=== PATIENT | female | born 1965 | race African-American/Black ===

== ENCOUNTER 2017-02-26 18:17 | Emergency (ER) | payer MEDICAID ==
[~2017-02-26] VITALS: Ht 167.6 cm; Wt 85.0 kg
[2017-02-26] MEDS ORDERED: ONDANSETRON HCL 4MG/2ML VIAL IV STA (18:37)
[2017-02-26] MEDS ORDERED: KETOROLAC 30MG/ML VIAL IV STA (18:37)
[2017-02-26] MEDS ORDERED: MORPHINE SULFATE 4 MG/ML CPJ (NOT FOR IM USE) IV STA (18:37)
[2017-02-26] MEDS ORDERED: MORPHINE SULFATE 4 MG/ML CPJ (NOT FOR IM USE) IV ONE (20:00)
[2017-02-26 21:58] VITALS: BP 109/70
== END 2017-02-26 21:59 | disposition home or self-care (01) ==
LOC: ER 18:37
DX: G89.29 Other chronic pain (principal); M54.9 Dorsalgia, unspecified
CPT/HCPCS: 72070; 72100; 96374; 96375; 96376; 99284; J1885; J2270; J2405

== ENCOUNTER 2017-10-02 21:59 | Emergency (ER) | payer MEDICAID ==
[~2017-10-02] VITALS: Ht 167.6 cm; Wt 100.0 kg
[2017-10-03] MEDS ORDERED: MORPHINE SULFATE 4 MG/ML CPJ (NOT FOR IM USE) IV STA (03:14)
[2017-10-03] MEDS ORDERED: ONDANSETRON HCL 4MG/2ML INJ IV STA (03:14)
[2017-10-03 07:00] VITALS: BP 146/71
== END 2017-10-03 08:43 | disposition home or self-care (01) ==
LOC: ER 22:19
DX: M54.5 Low back pain (principal); G89.29 Other chronic pain; M19.90 Unspecified osteoarthritis, unspecified site; Z98.890 Other specified postprocedural states
CPT/HCPCS: 96374; 96375; 99284; J2270; J2405; Z7610